=== PATIENT | male | born 1995 | race Caucasian/White ===

== ENCOUNTER 2021-10-12 12:50 | Emergency (ER) | payer MEDICAID ==
[~2021-10-12] VITALS: Ht 172.7 cm; Wt 88.0 kg
[2021-10-12] MEDS ORDERED: ACETAMINOPHEN 325MG TABLET PO ONE (13:45)
[2021-10-12] MEDS ORDERED: TOPUD MT (13:47)
[2021-10-12 13:55] VITALS: BP 115/68
== END 2021-10-12 13:55 | disposition home or self-care (01) ==
LOC: ER 12:50
DX: U07.1 COVID-19 (principal); H92.03 Otalgia, bilateral
CPT/HCPCS: 87426; 99283